=== PATIENT | male | born 1950 | race Caucasian/White ===

== ENCOUNTER 2022-06-08 09:21 | Observation (INO) ==
--- NOTE | 2022-05-08 13:12 | PAT Medication Instructions ---
Medication Instructions Date of Service May 08, 2022 Home Medications amlodipine 5 mg tablet 5 mg PO HS losartan 50 mg tablet 50 mg PO HS Take evening before surgery amlodipine 5 mg tablet 5 mg PO HS losartan 50 mg tablet 50 mg PO HS Other Notes If you have any questions please call us at [phone] or [phone] or [phone] or [phone]
--- NOTE | 2022-05-11 09:18 | Anesthesiology Consultation ---
Date of Service May 11, 2022 Assessment & Plan (1) Encounter for pre-operative examination: - Outpatient joint assessment: Patient is currently scheduled for inpatient pathway. If re-evaluated pending system levels during current pandemic/surgeon requests outpatient pathway, patient is acceptable candidate for outpatient joint program from anesthesia standpoint pending surgeon's office assessment of pt motivation/support/completion of same day joint program preop requirements. Chart Review Chart Review: Acceptable Risk for Surgery and Patient seen in Pre Admission Testing Teaching & Discussion Pre-Anesthesia Teaching/Discussion Notes: Instructed NPO after midnight before surgery, except medications with 15 cc of water. Medication instructions provided according to the PAT guidelines. History Surgery Operation Date: 06/08/22 12:20 Proposed Procedures p Right Total Knee Arthroplasty - Clyde Mondragon MD Height/Weight Height: 6 ft Weight: 89.3 kg Allergies Allergy/AdvReac Type Severity Reaction Status Date / Time ciprofloxacin Allergy itching Verified 05/08/22 12:09 and rash Medications Home Medications Medication Instructions Recorded Confirmed Last Taken amlodipine 5 mg tablet 5 mg PO HS 12/30/18 05/08/22 Unknown losartan 50 mg tablet 50 mg PO HS 12/30/18 05/08/22 Unknown Past Medical History Medical History (Updated 05/11/22 @ 09:45 by Candice Gonzalez PA-C) Chronic kidney disease, stage III (moderate) Hearing loss Hypertension controlled, stable per pt Obstructive sleep apnea CPAP-compliant Portal vein thrombosis 2020 Patient denies h/o stroke, seizures, heart attack, heart failure, DM, or blood transfusions. Exercise / Class Metabolic Activity II 4-5 Yardwork/Stairs/Walk up hill (denies chest discomfort or shortness of breath with 1 FOS) Past Family History Family History Denies family history of Kidney disease Past Surgical History Surgical History History of ERCP Blood clot in liver > stent placed Hx laparoscopic cholecystectomy Hx of bilateral cataract extraction Hx of colonoscopy Hx of inguinal hernia repair Past Anesthesia History No Hx of Anesthesia Complications and No Family Hx of Anesthesia Complications History of PONV No Hx of PONV and No Hx of Motion Sickness Social History Smoking Status: Never smoker Do You Dip or Chew Tobacco: No Hx Alcohol Use: No Hx Substance Use: No substance use type: does not use Review of Systems Patient denies chest pain, shortness of breath, dyspnea on exertion, reflux, fever, chills, cough, wheezing, or palpitations. Physical Exam Vital Signs Vitals BP 157/98 (Pt states BP is usually within a normal range, has whitecoat hypertension) P 57 TEMP 97.3 SP02 98% on RA RESP 18 Physical Full cervical extension range of motion without pain TMD 3.5 finger breadths Mallampati Score 2 Dentition: intact, denies chipped or loose teeth, caps/crowns, implants or bridges Lungs: normal respiratory effort. Clear throughout to auscultation, no adventitious breath sounds Cardiac: regular rate and rhythm, no murmurs noted Carotid arteries: negative bruit bilat Lab Results Anesthesia Preop Results Results Anesthesia Widget: WBC 6.08 K/ul (4.8-10.8) 05/11/22 Hgb 15.9 g/dl (14.0-18.0) 05/11/22 Hct 47.7 % (42.0-52.0) 05/11/22 Plt 148 K/uL (130-400) 05/11/22 Na 139 mmol/L (136-145) 05/11/22 K 4.9 mmol/L (3.5-5.1) 05/11/22 Cl 105 mmol/L (98-107) 05/11/22 CO2 31 mmol/L (21-32) 05/11/22 BUN 28 mg/dl (6-23) H 05/11/22 Creat 1.95 mg/dl (0.6-1.4) H 05/11/22 Glucose Level 65 mg/dl (70-99(Fasting)) L 05/11/22 PT 10.9 Seconds (9.0-12.0) 05/11/22 PTT 29.6 Seconds (21.0-31.0) 05/11/22 INR 1.0 (0.9-1.1) 05/11/22 Urine Color Yellow 05/11/22 Urine Appearance Clear (Clear) 05/11/22 Urine pH 6.0 (4.5-7.5) 05/11/22 Urine Specific [place] 1.010 (1.000-1.030) 05/11/22 Urine Protein Negative (Negative) 05/11/22 Urine Glucose (UA) Negative (Negative) 05/11/22 Urine Ketones Negative (Negative) 05/11/22 Urine Blood Negative (Negative) 05/11/22 Urine Nitrite Negative (Negative) 05/11/22 Urine Bilirubin Negative (Negative) 05/11/22 Urine Urobilinogen Negative (Negative) 05/11/22 Urine Leukocyte Esterase Negative (Negative) 05/11/22 Blood Type O Positive 05/11/22 Antibody Screen NEGATIVE 05/11/22 Testing Electrocardiogram Date: 05/11/22 Sinus bradycardia, rate 50 bpm Chest X-Ray Date: 05/11/22 Cholecystectomy. Cardiomediastinal and hilar silhouettes are within normal limits. No pneumothorax, pleural effusion, airspace consolidation or pulmonary edema. Bones appear grossly intact. IMPRESSION: No acute process. COVID-19 Risk Screen Screening Information COVID-19 Screen Date: 05/11/22 Exposure 21 Days Family/Household +COVID Last 21 Days: No Exposure 10 Days Any COVID Exposure Last 10 Days: No Symptoms Last 10 Days Experienced COVID Sx Last 10 Days: No + COVID 0-90 Days COVID + in Last 0-90 Days: No
--- NOTE | 2022-06-07 18:39 | History & Physical Report ---
Date of Service June 07, 2022 Assessment & Plan (1) Primary osteoarthritis of right knee: Plan: Treatment options discussed with patient. He has failed conservative measures and would like to proceed with surgical intervention. Risks, benefits and alternatives to surgery including but not limited to infection, DVT, pain, stiffness, need for revision surgery, damage to blood vessels, damage to nerves, PE, , were discussed with the patient and they wish to proceed. Plan on right total knee arthroplasty scheduled for [facility] on 06/08/[address] Mondragon. [facility] outpatient physical therapy. Plan on aspirin 81mg BID for 1 mo post op for DVT prophylaxis. All questions answered. Patient will follow up post op. History of Present Illness Chief Complaint: Right knee pain Primary Care Provider: Odell Ascencio 71yo male with PMHx siginificant for HTN, EVER, CKD who presents with ongoing right knee pain interfering with his daily activities. He has failed conservative measures and would like to proceed with surgical intervention. Patient denies headaches, sweats, fevers, chills, double vision, blurred vision, cough, sore throat, dysphagia, chest pain, sob, wheezing, n/v/d/c, numbness, tingling, fatigue, urinary symptoms, mood disorders. ROS positive for right knee pain and stiffness. Allergies Allergy/AdvReac Type Severity Reaction Status Date / Time ciprofloxacin Allergy itching Verified 05/08/22 12:09 and rash Home Medications Medication Instructions Recorded Confirmed Type amlodipine 5 mg tablet 5 mg PO HS 12/30/18 05/08/22 History losartan 50 mg tablet 50 mg PO HS 12/30/18 05/08/22 History Past Med/Surg History Medical History (Updated 06/07/22 @ 18:37 by Gera Newell PA-C) Chronic kidney disease, stage III (moderate) Hearing loss Hypertension controlled, stable per pt Obstructive sleep apnea CPAP-compliant Portal vein thrombosis 2020 Surgical History History of ERCP Blood clot in liver > stent placed Hx laparoscopic cholecystectomy Hx of bilateral cataract extraction Hx of colonoscopy Hx of inguinal hernia repair Family History Denies family history of Kidney disease Social History Smoking Status: Never smoker Second Hand Exposure: No; Do You Dip or Chew Tobacco: No; Tobacco Cessation Education Requested by Patient: No Hx Alcohol Use: No Hx Substance Use: No Preferred Language: Cook Islander Communication Ability: Effective Accountant Property Required: No Beliefs That Will Affect Care: None marital status: Current Living Situation: Spouse current occupational status: retired 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 Other Information That Helps Us Care for You: No Feels Safe at Home: Yes Safety Concerns: Feels Safe At This Time Assistive Devices: CPAP and Glasses Assistive Devices Comment: reading glasses Review of Systems All systems reviewed & are unremarkable except as noted in HPI & below Physical Exam Constitutional: well developed and well nourished; no acute distress Eyes: PERRL, conjunctivae normal, anicteric sclerae ENMT: external ear and nose normal, oropharynx normal Neck: trachea midline, no thyromegaly Respiratory: normal respiratory effort, lungs clear to auscultation Cardiovascular: RRR, no murmur, no edema Musculoskeletal: Right knee: Varus alignment. Medial joint line tenderness. Stable to valgus and varus stress. ROM 15-125 degrees. Skin: no rashes, warm and dry Neurologic: patellar DTR's 2+ bilat, sensation intact Psychiatric: A+Ox3, euthymic affect Results & Data Diagnostic Findings Right knee radiographs demonstrate severe endstage osteoarthritis, bone on bone medial compartment with bone loss medial tibial plateau. There are periarticular osteophytes. Varus alignment.
[~2022-06-08 09:21] MED LIST: ACETAMINOPHEN 500 MG TAB PO SCH; BUPIVACAINE 0.5 % 5 MG/1 ML PF 10ML VIAL ONE; CeleBREX 200 MG CAP PO SCH; FAMOTIDINE 20 MG TAB PO SCH; GABAPENTIN 300 MG CAP PO SCH; LR 500ML BOLUS, THEN 15ML/HR IV SCH; METOCLOPRAMIDE HCL 10 MG TABLET PO SCH; MIDAZOLAM HCL 1 MG/ML 2ML VIAL ONE; ROPIVACAINE 0.5% 5 MG/ML 30 ML VIAL ONE; ROPIVACAINE 0.5% HCL/PF 150 MG, BUPIVACAINE 0.75% MPF 20 ML, EPINEPHrine 30MG/30ML (OR ... INSTIL SCH; TRANEXAMIC ACID 1,000 MG **IV Intra-op IV SCH; TRANEXAMIC ACID 1,000 MG **IV Pre-op IV SCH; ceFAZolin 2000MG 2,000 MG/15 ML SYR IV SCH; dexAMETHasone 4 MG TAB PO SCH; fentaNYL citrate PF 100 MCG/2 ML VIAL ONE
[2022-06-08] MEDS ORDERED: fentaNYL citrate PF 100 MCG/2 ML VIAL IV PRN (09:38)
[2022-06-08] MEDS ORDERED: ATROPINE SULFATE 0.1 MG/ML 10ML SYR IV PRN (09:38)
[2022-06-08] MEDS ORDERED: ePHEDrine sulfate 50 MG/ML AMP IV PRN (09:38)
[2022-06-08] MEDS ORDERED: ONDANSETRON INJ 2 MG/ML 2 ML VIAL IV PRN ×2 (09:38→15:59)
[2022-06-08] MEDS ORDERED: ORTHO JOINT ANESTHETIC ONE (10:07)
--- NOTE | 2022-06-08 10:55 | History & Physical Bridge Note ---
Date of Service June 08, 2022 History & Physical Bridge Note I have examined the patient, reviewed the History & Physical and in the interval since the performance of the History & Physical I have noted the following changes of clinical significance: no changes noted
[2022-06-08] MEDS ORDERED: ONDANSETRON INJ 2 MG/ML 2 ML VIAL ONE (11:19)
[2022-06-08] MEDS ORDERED: ePHEDrine sulfate 50 MG/ML SYR ONE (11:19)
[2022-06-08] MEDS ORDERED: PROPOFOL IV EMULSION 10 MG/ML 20 ML VIAL IV ONE ×4 (11:19→13:20)
--- NOTE | 2022-06-08 13:04 | Operative Report ---
Post Operative Report Pre & Post Diagnosis Operation Date: 06/08/22 11:45 Pre-Op Diagnosis: Primary osteoarthritis of right knee, history of open knee surgery and arthrotomy Post-Op Diagnosis: Primary osteoarthritis of right knee, history of open knee surgery and arthr otomy, degeneration but intact ACL, degenerative medial meniscus. I identified the patient and participated in the time-out.: Yes Procedure Operation Date: 06/08/22 11:45 Actual Procedures p Right Total Knee Arthroplasty(Right), narendra and Acticoat superficial wound VAC- Clyde Mondragon MD Surgeon Clyde Mondragon MD Banquet Food Server Richard STREETER Estimated Blood Loss 5 Findings Consistent with Post-Op Diagnosis Specimens Bone cuts Drains 2 Hemovac Anesthesia Type General Regional Complications none Disposition Disposition: Recovery Room Indications 71-year-old male with chronic right knee pain with advanced tricompartmental osteoarthritis and stiffness. History of open knee arthrotomy surgery years ago. Description of Procedure Patient taken to the operating room the size under spinal MAC regional block anesthesia. Patient was placed supine on the operating table. A pneumatic tourniquet was placed about the right upper thigh. The right lower extremity was prepped and draped in sterile fashion. Knee exam demonstrated marked varus alignment of the knee with range of motion 20 through 110 degrees. The leg was elevated exsanguinated with an Esmarch bandage and pneumatic tourniquet was raised to 300 millimeters of mercury. Skin incised sharply in longitudinal fashion. Subcutaneous flaps elevated. Incision was made through the medial retinaculum extending up in the mid third of the quadriceps tendon and down to the medial tibial tubercle. Intra-articular findings demonstrated tricompartmental osteoarthritis [id number] in the medial compartment anterior medial arthritis with bone loss in the medial compartment femoral condyle and ti denilson. There was still a medial meniscus which was subluxed and degenerative in appearance. ACL had degenerative changes but was still intact. There was marked knee effusion and chronic synovitis. The joint effusion was evacuated with suction. The [employer] triathlon total knee arthroplasty system was used. To expose the knee the infrapatellar fat pad was resected. The meniscal remnants and cruciate ligaments were resected. The anterior fat pad over the femur in the area of the anterior flange of the femoral component was resected. Lateral synovial bands release. The femur was exposed. An intramedullary drill hole was made into the canal. A guide terrell was placed. Distal femoral cutting guide was adjusted to resect a 5 degree valgus cut with 10 millimeters distal femur resected. The knee was extended and a subperiosteal peel lateral release was performed around the patella. Patella width was measured and width was reproduced using a freehand cut technique and a 36 x 10 symmetrical patella component. The 3 drill holes were made and the excess lateral facet was beveled off to prevent any impingement. Attention was taken back to the femur which was exposed with retractors and the femoral sizing guide was pinned in position. The drill holes were placed in 3 of external rotation to match epicondylar axis. Femur sized for a 7 component. The 4-in-1 cutting block was placed and then the anterior posterior and chamfer cuts are made. The tibia was then subluxed. The external tibial cutting guide was just to make a perpendicular cut to the long axis of the tibia below the most deficient bone loss side. A lamina software systems engineer was used and the flexion extension gaps were balanced. All posterior osteophytes removed. All meniscal remnants were resected. The tibia exposed and the trial tibial component size 6 was externally rotated in line with the tibial tubercle and pinned in position. The punch for stem was used. The notch cutting device was centered appropriately and the femoral notch cut was made. The femoral trial was inserted. Trial tibial inserts were placed and size 16 gave balanced ligaments through flexion and extension. Patella tracking was assessed. The patella tracked centrally. The trial components were then removed and the orthomix anesthetic cocktail was injected per protocol. The knee was then copiously irrigated with pulsatile lavage saline solution. Final components were then cemented with Refobacin cement. Final components were [place] triathlon posterior stabilized right size 7 femoral component, a size 6 primary tibial baseplate, a 6 x 16 mm posterior stabilized tibial bearing insert X.3 polyethylene, a symmetrical 36 x 10 mm X.3 polyethylene patella.. After the cement cured the Betadine soak was used for 3 minutes. Further pulsatile lavage irrigation was then performed and 2 Hemovac drains were brought out laterally. The quadriceps tendon and medial retinaculum were closed with figure of 8 #1 Vicryl sutures. The knee was taken through full range of motion and the repair was secure. Knee range of motion was 5 through 130 degrees but I could passively stretch the knee to 0 degrees full extension. The subcutaneous tissues were closed with 2-0 Vicryl sutures. Skin was closed with allie. Narendra and Acticoat superficial wound VAC was applied. The patient tolerated the procedure well. Richard STREETER was my physician purchasing administrative assistant who participated as assistant to the vice president and was involved in all aspects of the procedure including patient positioning prepping and draping,leg positioning ,soft tissue retraction and instrument management and participated in the closing and will participate in postoperative care of the patient. The patient tolerated the procedure well. I attest to the content of the Intraoperative Record and any orders documented therein. Any exceptions are noted below.
--- NOTE | 2022-06-08 14:21 | XRay Report ---
RIGHT KNEE 2 VIEWS History: Right total knee arthroplasty. Degenerative arthritis. Postop. FINDINGS: The patient is status post a right total knee arthroplasty. The hardware is intact. No frac ture or dislocation. Skin allie and surgical drains are in place. IMPRESSION: Right total knee arthroplasty. No evidence for hardware complication. ACT 112: Negative or not required by law. Electronically signed by: Gregg Chavez M.D. 06/08/2022 2:19 PM
--- NOTE | 2022-06-08 15:01 | Anesthesiology Progress Note ---
Date of Service June 08, 2022 Anesthesia Post Procedure Vital Signs Vital Signs: Temp Pulse Resp BP Pulse Ox O2 Del Method O2 Flow Rate 06/08/22 14:55 97.9 F 50 L 13 120/80 96 Room Air 06/08/22 14:45 48 L 14 117/75 95 Room Air 06/08/22 14:35 50 L 18 117/78 97 Room Air 06/08/22 14:25 51 L 18 122/78 95 Room Air 06/08/22 14:15 50 L 17 113/81 96 Room Air 06/08/22 14:05 50 L 17 114/80 94 Room Air 06/08/22 13:55 54 L 13 112/71 96 Room Air 06/08/22 13:45 97.2 F L 64 14 112/72 99 Oxymask 5 06/08/22 09:50 97.7 F 20 154/106 H 97 Room Air Transfer of Care Handoff Completed per policy Notes Mental Status: alert / awake / arousable and participated in evaluation Patient Amnestic to Procedure: Yes Nausea / Vomiting: adequately controlled Pain: adequately controlled Airway Patency, RR, SpO2: stable & adequate BP & HR: stable & adequate Hydration State: stable & adequate Neuraxial Anesthesia: was administered and sensory block is resolving Anesthetic Complications: no major complications apparent and Pt Satisfied with anesthetic care
[2022-06-08] MEDS ORDERED: TAMSULOSIN HCL 0.4 MG CAP PO PRN (15:59)
[2022-06-08] MEDS ORDERED: METOCLOPRAMIDE HCL INJ 5 MG/ML 2 ML VIAL IV PRN (15:59)
[2022-06-08] MEDS ORDERED: bisacodyL 10 MG SUPP PR PRN (15:59)
[2022-06-08] MEDS ORDERED: HYDROmorphone INJ 0.5 MG/0.5 ML SYR IV PRN (15:59)
[2022-06-08] MEDS ORDERED: MAGNESIUM HYDROXIDE SUSP 30 ML UDC PO PRN (15:59)
[2022-06-08] MEDS ORDERED: oxyCODONE HCL IR 5 MG TAB (IMMEDIATE RELEASE) PO PRN (15:59)
[2022-06-08] MEDS ORDERED: NALOXONE HCL 0.4 MG/1 ML VIAL/CARP IV PRN (15:59)
[2022-06-08] MEDS: SODIUM CHLORIDE 0.9% 1000ML 1,000 ML IV SCH (17:07)
[2022-06-08] MEDS: DOCUSATE SODIUM 100 MG CAP PO SCH (20:16)
[2022-06-08] MEDS: ASPIRIN 81 MG ECTAB PO SCH (20:16)
[2022-06-08] MEDS: ceFAZolin 2000MG 2,000 MG/15 ML SYR IV SCH (20:16)
[2022-06-08] MEDS ORDERED: SENNA 8.6 MG TAB PO SCH (21:00)
[2022-06-08] MEDS: ACETAMINOPHEN 500 MG TAB PO SCH (22:20)
[2022-06-09] MEDS: SODIUM CHLORIDE 0.9% 1000ML 1,000 ML IV SCH (01:30)
[2022-06-09] MEDS: ceFAZolin 2000MG 2,000 MG/15 ML SYR IV SCH (03:35)
[2022-06-09] MEDS: ACETAMINOPHEN 500 MG TAB PO SCH (06:04)
[2022-06-09] MEDS: ASPIRIN 81 MG ECTAB PO SCH (08:04)
[2022-06-09] MEDS: DOCUSATE SODIUM 100 MG CAP PO SCH (08:04)
[2022-06-09] MEDS ORDERED: MULTIVITAMIN TAB PO SCH (09:00)
--- NOTE | 2022-06-09 09:19 | Hospitalist Consultation ---
Date of Consultation June 09, 2022 Assessment & Plan (1) Hypertension: Chronic stable hypertension continue meds patient has been ordered his typical outpatient hypertensive medications his blood pressure today after surgery is 145/75. (2) Chronic kidney disease, stage III (moderate): Chronic stable chronic kidney disease continue ARB (3) Primary osteoarthritis of right knee: Discussed with surgery on 06/08/[address] Justin a right total knee arthropla sty History of Present Illness Attending Physician: Clyde Mondragon MD History of Present Illness 71-year-old male underwent right total knee arthroplasty on 06/08/[address] Pérez. Patient is a history of hypertension and sleep apnea. Patient takes amlodipine and losartan. He also has chronic kidney disease stage III. He failed outpatient management of his knee arthritis and underwent successful surgery on the . Allergies Allergy/AdvReac Type Severity Reaction Status Date / Time ciprofloxacin Allergy itching Verified 06/08/22 09:49 and rash Home Medications Medication Instructions Recorded Confirmed Type amlodipine 5 mg tablet 5 mg PO HS 12/30/18 06/08/22 History losartan 50 mg tablet 50 mg PO HS 12/30/18 06/08/22 History acetaminophen 500 mg tablet 1,000 mg PO Q8 14 days #84 tabs 06/09/22 Rx (Tylenol Extra Strength) aspirin 81 mg tablet,delayed 81 mg PO BID 30 days #60 tabs 06/09/22 Rx release oxycodone 5 mg tablet 5 mg PO Q4H PRN pain #30 tabs 06/09/22 Rx polyethylene glycol 3350 17 gram 17 g PO DAILY PRN constipation #5 06/09/22 Rx oral powder packet (Miralax) ea Patient History Medical History Chronic kidney disease, stage III (moderate) Hearing loss Hypertension controlled, stable per pt Obstructive sleep apnea CPAP-compliant Portal vein thrombosis 2020 Surgical History History of ERCP Blood clot in liver > stent placed Hx laparoscopic cholecystectomy Hx of bilateral cataract extraction Hx of colonoscopy Hx of inguinal hernia repair Family History Denies family history of Kidney disease Social History Smoking Status: Never smoker Second Hand Exposure: No; Do You Dip or Chew Tobacco: No; Tobacco Cessation Education Requested by Patient: No Hx Alcohol Use: No Hx Substance Use: No Preferred Language: Swiss Communication Ability: Effective Brake Liner Required: No Beliefs That Will Affect Care: None marital status: Current Living Situation: Spouse current occupational status: retired 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 Other Information That Helps Us Care for You: No Feels Safe at Home: Yes Safety Concerns: Feels Safe At This Time Assistive Devices: None Assistive Devices Comment: reading glasses Results & Data Results & Data Vital Signs (Past 12 Hours) Vital Signs Temp Pulse Pulse Resp BP Pulse Ox O2 Del Method 06/09/22 07:46 97.5 F L 55 L 16 145/75 H 98 CPAP 06/09/22 03:20 97.5 F L 53 L 16 125/74 97 Room Air 06/08/22 22:38 97.7 F 58 L 18 131/73 96 Room Air PG Care Time/CCT Total # of Minutes Spent Total Time Spent with Patient: Total time spent is greater than 50% in coordination of care (as documented) at patient's floor/unit and/or counseling patient: Coding Level of Care Code 19450 IN/OBS CONSULT LVL 3,45M Diagnoses Hypertension I10 Chronic kidney disease, stage III (moderate) N18.3 Primary osteoarthritis of right knee M17.11
--- NOTE | 2022-06-09 09:28 | Orthopedic Progress Note ---
Date of Service June 09, 2022 Assessment & Plan (1) Primary osteoarthritis of right knee: Plan: Postop day 1 status post right total knee arthroplasty. PT/OT protocols. Weightbearing as tolerated. DVT prophylaxis-aspirin p.o. twice daily, SCDs, JOSE ding. Pain management as written. A.m. labs pending. VT planning-patient is planning for outpatient physical therapy upon discharge. Will wait for pending labs. Admission and Anticipated Discharge Date Admission Date: June 08, 2022 Subjective Postop day 1 Patient sitting up in the chair at the bedside. No complaints this morning. Pain is controlled. Denies shortness of breath, chest pain, lightheadedness. He is hoping to go home today. Physical Exam Physical Exam: Dressings are clean, dry, and intact. Calves are soft nontender. Neurovascular is intact. Toes are mobile. He has good dorsiflexion and plantarflexion of his right foot. Hemovac drainage was 150 mL from the previous shift. Results & Data Vital Signs (Past 12 Hours) Vital Signs Temp Pulse Pulse Resp BP Pulse Ox O2 Del Method 06/09/22 07:46 36.4 C L 55 L 16 145/75 H 98 CPAP 06/09/22 03:20 36.4 C L 53 L 16 125/74 97 Room Air 06/08/22 22:38 36.5 C 58 L 18 131/73 96 Room Air
[2022-06-09 10:47] LABS: Hematocrit (blood only) 40.7 % (42.0-52.0); Hemoglobin 13.5 g/dl (14.0-18.0); Mean Corpuscular Hemoglobin 30.7 pg (25.0-34.0); Mean Corpuscular Hgb Conc 33.2 g/dL (32.0-36.0); Mean Corpuscular Volume 92.5 fL (80.0-100.0); Mean Platelet Volume 11.7 fL (9.4-12.4); Platelet Count 121 K/uL (130-400); RDW Coefficient of Variation 13.1 % (11.5-14.5); RDW Standard Deviation 44.3 fL (36.4-46.3); White Blood Count 13.86 K/ul (4.8-10.8)
[2022-06-09 10:54] LABS: BUN Creatinine Ratio 15.6 (10-20); Calcium 8.6 mg/dl (8.6-10.3); Creatinine Clr Calc Pharmacy 35.8 ml/min; Est GFR (African American) 36.4 ml/min; Est GFR (Non-African American) 31.4 ml/min; Potassium 4.5 mmol/L (3.5-5.1)
[2022-06-09] MEDS ORDERED: LOSARTAN POTASSIUM 50 MG TAB PO SCH (21:00)
[2022-06-09] MEDS ORDERED: amLODIPine BESYLATE 5 MG TAB PO SCH (21:00)
--- NOTE | 2022-06-13 09:28 | Discharge Summary ---
Date of Service June 13, 2022 Admission HPI Per Admitting Provider 71yo male with PMHx siginificant for HTN, EVER, CKD who presents with ongoing right knee pain interfering with his daily activities. He has failed conservative measures and would like to proceed with surgical intervention. Patient denies headaches, sweats, fevers, chills, double vision, blurred vision, cough, sore throat, dysphagia, chest pain, sob, wheezing, n/v/d/c, numbness, tingling, fatigue, urinary symptoms, mood disorders. ROS positive for right knee pain and stiffness. Admission Exam Per Admitting Provider Constitutional: well developed and well nourished; no acute distress Eyes: PERRL, conjunctivae normal, anicteric sclerae ENMT: external ear and nose normal, oropharynx normal Neck: trachea midline, no thyromegaly Respiratory: normal respiratory effort, lungs clear to auscultation Cardiovascular: RRR, no murmur, no edema Musculoskeletal: Right knee: Varus alignment. Medial joint line tenderness. Stable to valgus and varus stress. ROM 15-125 degrees. Skin: no rashes, warm and dry Neurologic: patellar DTR's 2+ bilat, sensation intact Psychiatric: A+Ox3, euthymic affect Principal Diagnosis Right knee osteoarthritis Discharge Exam Dressings are clean, dry, and intact. Calves are soft nontender. Neurovascular is intact. Toes are mobile. He has good dorsiflexion and plantarflexion of his right foot. Hemovac drainage was 150 mL from the previous shift. Constitutional WD/WN, vitals as above Discharge Data Allergies Allergy/AdvReac Type Severity Reaction Status Date / Time ciprofloxacin Allergy itching Verified 06/08/22 09:49 and rash Consultations 06/05/22 16:31 Consult Hospitalist Routine Procedures Performed Operation Date: 06/08/22 11:45 Actual Procedures p Right Total Knee Arthroplasty(Right) - Clyde Mondragon MD Ordered Studies 06/08/22 05:00 US - OR guided needle placemen Routine Hospital Course (1) Primary osteoarthritis of right knee: Postop day 1 status post right total knee arthroplasty. PT/OT protocols. Weightbearing as tolerated. DVT prophylaxis-aspirin p.o. twice daily, SCDs, JOSE ding. Pain management as written. A.m. labs pending. DC planning-patient is planning for outpatient physical therapy upon discharge. Will wait for pending labs. Lab Results 06/08/22 06/09/22 06/09/22 Range/Units 09:25 10:08 10:08 WBC 13.86 H (4.8-10.8) K/ul RBC 4.40 L (4.70-6.10) M/uL Hgb 13.5 L (14.0-18.0) g/dl Hct 40.7 L (42.0-52.0) % MCV 92.5 (80.0-100.0) fL MCH 30.7 (25.0-34.0) pg MCHC 33.2 (32.0-36.0) g/dL RDW Std Deviation 44.3 (36.4-46.3) fL RDW Coeff of Bettye 13.1 (11.5-14.5) % Plt Count 121 L (130-400) K/uL MPV 11.7 (9.4-12.4) fL Sodium 137 (136-145) mmol/L Potassium 4.5 (3.5-5.1) mmol/L Chloride 107 (98-107) mmol/L Carbon Dioxide 22 (21-32) mmol/L Anion Gap 8 (3-11) BUN 32 H (6-23) mg/dl Creatinine 2.05 H (0.6-1.4) mg/dl Est Cr Clr Drug Dosing 35.8 ml/min Est GFR ( Amer) 36.4 ml/min Est GFR (Non-Af Amer) 31.4 ml/min BUN/Creatinine Ratio 15.6 (10-20) Glucose 116 H (70-99(Fasting)) mg/dl Calcium 8.6 (8.6-10.3) mg/dl SARS-CoV-2, RNA, NAAT NEGATIVE (NEGATIVE) Total Time Total Time Spent Total Time Spent (In Minutes): 20 Discharge Plan Discharge Items Patient Disposition: Home - Self-Care Reason For Visit: POST OP Discharge Diagnosis: Right knee osteoarthritis Activity: Per Instructions section Weightbearing: Right weightbearing Weightbearing Comment: As tolerated with walker Non-emergency contact: Surgeon Call non-emergency contact if: you have any medication questions, your pain is concerning for you, you have a fever, your temperature is above 101, your wound has increased redness and your wound has increased drainage Follow-up/Referrals: Clyde Mondragon MD [Surgeon] - (Follow up with Dr Mondragon or his PA in 2 weeks from the day of your surgery for your first postoperative visit.) Odell Ascencio D.O. [Primary Care Provider] - Diet: Regular Addtl Attending Provider Instructions: ACTIVITY RECOMMENDATIONS: SELF CARE INSTRUCTIONS AFTER TOTAL KNEE REPLACEMENT A. You may need to continue a physical therapy program after discharge from the hospital. There are several options available to you. Your doctor will assist you in selecting the best one for you. 1. An out-patient facility 2 to 3 times a week for therapy or home therapy. 2. Continue working on all exercises taught to you in the hospital. Your goals should be to increase bending of your knee to 90 degrees and beyond and to fully straighten your knee. B. You may progress at your own pace from walking with a walker or crutches to a cane; then to no assistive devices. C. Make walking a part of your daily routine. Be up as much as comfortable with rest periods throughout the day. Rest with leg elevation is very important. Use the ice wrap frequently for the first 3-4 weeks. D. There are no restrictions on activities. You may ride in a car, shop, participate in rubber grinder and all social activities. E. Wear the long elastic stockings (JOSE hose) 20 hours a day for 2 weeks after surgery. They can be removed several times a day for laundering and for a bath. F. You may shower, no tub baths until cleared by your doctor. SPECIAL CARE INSTRUCTIONS: VERY IMPORTANT TO READ AND REVIEW A. There are a few signs you need to watch for after you are home. Call [facility] if you notice any of the followin. Increased severe knee pain. Some pain is expected especially when you exercise. 2. Increased swelling in your leg or knee; pain or swelling of the calf muscle in either lower leg. 3. Any fluid drainage from the incision. 4. Shortness of breath or chest pain. B. Please call [facility] at if you have any concerns or questions about your operation or recovery. The doctor or his nurse will return your call promptly. C. You must take antibiotics before dental work, bladder, bowel or other surgery. Your doctor will provide you with a permanent care to carry describing this precaution. IMPORTANT: * REMEMBER TO TAKE ASPIRIN, 81 MG, TWICE DAILY FOR 4 WEEKS UNLESS OTHERWISE DIRECTED. THIS IS YOUR BLOOD THINNER. * HIGH RISK PATIENTS MAY BE PRESCRIBED A STRONGER BLOOD THINNER. THIS WILL BE PROVIDED AT DISCHARGE. * CALL IF INCREASED PAIN, REDNESS, DRAINAGE OR FEVER GREATER THAT 101. * WEAR JOSE HOSE 20 HOURS PER DAY FOR 2 WEEKS. This is a large suction dressing covering your incision. This will help pull any excess drainage from the wound and allow your incision to heal properly. You may shower with this if you can keep the unit outside of the shower. If any bleeding or leakage is noted please call your doctor's office. This will remain on your incision for 7 days and then should be removed. This can be done yourself or by the home nursing staff if applicable. The entire unit is disposable once removed. Once removed, keep incision clean and dry. If redness or drainage is noted, please call your surgeon. . IF INCISION IS LEAKING THROUGH DRESSING, CALL THE OFFICE . FOLLOW UP VISIT: If appointment is not already scheduled: Please call [facility] to make a follow-up appointment for 2 weeks after your surgery at . Follow up with your PCP in the next 2 weeks to check your Chronic Kidney Disease. Stand-Alone Forms: My [facility], Smoking Cessation Medications and DC Order Prescriptions: New aspirin 81 mg Tablet,Delayed Release (Dr/Ec) 81 mg PO BID 30 Days Qty: 60 0RF acetaminophen [Tylenol Extra Strength] 500 mg Tablet 1,000 mg PO Q8 14 Days Qty: 84 0RF polyethylene glycol 3350 [Miralax] 17 gram powder in packet 17 g PO DAILY PRN (Reason: constipation) Qty: 5 0RF oxycodone 5 mg tablet 5 mg PO Q4H MDD 6 PRN (Reason: pain) Qty: 30 0RF Continued losartan 50 mg tablet 50 mg PO HS amlodipine 5 mg tablet 5 mg PO HS Discharge Orders: Discharge Order (Routine); Ordered 06/09/22 Ordered By: Odell Rodas Admission Data Admit Date/Time: 06/08/22 13:47 Attending Provider: Clyde Mondragon Admit Provider: Clyde Mondragon Primary Care Provider: Odell Ascencio Other Providers: Jose M Falk Thomas E. Other Interventions: Discharge Summary Assessment (RN) Last Done: 06/09/22 11:26
== END 2022-06-09 13:07 | disposition home or self-care (01) ==
LOC: ASU 09:21 → 3E 09:21